=== PATIENT | male | born 1990 | race Caucasian/White ===

== ENCOUNTER 2018-06-09 08:54 | Emergency (ER) | payer BC, MEDICAID ==
[~2018-06-09] VITALS: Ht 167.6 cm; Wt 105.0 kg
[~2018-06-09 08:54] MED LIST: MOTRIN; PROMETHAZINE
[2018-06-09] MEDS ORDERED: SODIUM CHLORIDE 0.9% 1,000 ML IV ONE (09:22)
[2018-06-09] MEDS ORDERED: ONDANSETRON HCL 4MG/2ML INJ IV STA (09:22)
[2018-06-09] MEDS ORDERED: FAMOTIDINE 20MG/2ML VIAL IV STA (09:22)
[2018-06-09] MEDS ORDERED: MORPHINE SULFATE 4 MG/ML CPJ (NOT FOR IM USE) IV STA (09:22)
[2018-06-09 10:05] LABS: HEMOGLOBIN. 16.4 g/dL (14.0-18.0); MEAN CORPUSCULAR HEMOGLOBIN 29.4 pg (28.0-32.0); MEAN CORPUSCULAR VOLUME 86.1 fL (80.0-94.0); MEAN PLATELET VOLUME 9.7 fl (7.4-10.4); PLATELET 232 x1000/uL (130-400); RED BLOOD CELL COUNT 5.58 mill/uL (4.7-6.1); RED CELL DISTRIBUTION WIDTH 13.3 % (11.6-14.6)
[2018-06-09] MEDS ORDERED: DIATR MEGLU/DIATRIZOATE SOLN 120ML ONE (10:11)
[2018-06-09] MEDS ORDERED: LIDOCAINE HCL 2% JELLY 5ML ONE (10:12)
[2018-06-09 10:13] LABS: INR 1.1; PROTHROMBIN TIME 10.7 sec (9.1-11.1)
[2018-06-09 10:22] LABS: CHLORIDE 101 mEq/L (98-107)
[2018-06-09 10:41] LABS: PLATELET ESTIMATE NORMAL
[2018-06-09 12:44] LABS: CLARITY URINE CLEAR (CLEAR); COLOR URINE YELLOW (YELLOW); KETONES URINE 3+ (NEGATIVE); LEUKOCYTE ESTERASE URINE NEGATIVE (NEGATIVE); NITRITE URINE NEGATIVE (NEGATIVE); OCCULT BLOOD URINE NEGATIVE (NEGATIVE); PROTEIN URINE NEGATIVE (NEGATIVE); SPECIFIC GRAVITY URINE 1.027 (1.005-1.030); UROBILINOGEN URINE 0.2 E.U./dL (0.2-1.0)
[2018-06-09 13:19] VITALS: BP 137/70
[2018-06-09 13:30] LABS: *BENZODIAZEPINES SCREEN URINE NEGATIVE (NEGATIVE); *COCAINE SCREEN URINE NEGATIVE (NEGATIVE); METHADONE URINE SCREEN NEGATIVE (NEGATIVE); OPIATES URINE SCREEN PRESUMTIVE POSITIVE (NEGATIVE)
[2018-06-09 13:31] LABS: *AMPHETAMINES SCREEN URINE NEGATIVE (NEGATIVE); *BARBITURATES SCREEN URINE NEGATIVE (NEGATIVE); CANNABINOID URINE SCREEN NEGATIVE (NEGATIVE); PHENCYCLIDINE URINE SCREEN NEGATIVE (NEGATIVE)
== END 2018-06-09 13:58 | disposition home or self-care (01) ==
LOC: ER 08:54
DX: R10.30 Lower abdominal pain, unspecified (principal); R11.10 Vomiting, unspecified; R19.7 Diarrhea, unspecified; R03.0 Elevated blood-pressure reading, without diagnosis of hypertension
CPT/HCPCS: 36415; 74176; 80053; 80305; 81003; 83690; 85025; 85610; 85730; 96361; 96374; 96375; 99285; J2270; J2405; J3490; J7030; Q9963